=== PATIENT | female | born 1985 | race Caucasian/White ===

== ENCOUNTER 2020-07-30 10:20 | Emergency (ER) | payer MEDICAID, SELFPAY ==
[~2020-07-30] VITALS: Ht 157.5 cm; Wt 81.6 kg
[2020-07-30 10:27] VITALS: BP 127/93
--- NOTE | 2020-07-30 10:29 | NUR ---
Patient in tent for covid precautions
--- NOTE | 2020-07-30 10:33 | NUR ---
35 y/o female from home c/o cough, sore throat, and body aches x 5 days. Denies sob/chest pain. RR even and unlabored. Afebrile. States + covid contact recently. 7/10 aching pain to general body. VSS medhx: denies
--- NOTE | 2020-07-30 10:42 | NUR ---
Dr Brewer in tent examining patient
--- NOTE | 2020-07-30 10:50 | NUR ---
Covid PCR and influenza swab collected and walked to lab.
[2020-07-30 12:05] VITALS: BP 127/93
--- NOTE | 2020-07-30 12:06 | NUR ---
Patient discharged with v/s stable. Written and verbal after care instructions given and explained. Patient alert, oriented and verbalized understanding of instructions. Ambulatory with steady gait. All questions addressed prior to discharge. ID band removed. Patient advised to follow up with PMD. Rx of Acetaminophen 500mg and Naprosyn 500mg given. Patient educated on indication of medication including possible reaction and side effects. Opportunity to ask questions provided and answered.
== END 2020-07-30 12:06 | disposition home or self-care (01) ==
LOC: MED 10:20
DX: B34.9 Viral infection, unspecified (principal); Z20.828 Contact with and (suspected) exposure to other viral communicable diseases
CPT/HCPCS: 87804; 99283; U0003

== ENCOUNTER 2020-09-30 15:36 | Emergency (ER) | payer MEDICAID, SELFPAY ==
[~2020-09-30] VITALS: Ht 154.9 cm; Wt 88.5 kg
[2020-09-30 15:40] VITALS: BP 131/87
[2020-09-30 16:36] VITALS: BP 131/87
== END 2020-09-30 16:36 | disposition home or self-care (01) ==
LOC: MED 15:36
DX: S63.602A Unspecified sprain of left thumb, initial encounter (principal); Z90.49 Acquired absence of other specified parts of digestive tract; W45.8XXA Other foreign body or object entering through skin, initial encounter; Y93.89 Activity, other specified; Y92.89 Other specified places as the place of occurrence of the external cause; Y99.8 Other external cause status
CPT/HCPCS: 73140; 99283